=== PATIENT | male | born 1975 | race Caucasian/White ===

== ENCOUNTER 2022-05-08 15:55 | Emergency (ER) | payer SELFPAY ==
[2022-05-08 15:58] VITALS: BP 160/98; PULSE 101; RESP 18; TEMP 36.8; O2SAT 98; BMI 26.8
--- NOTE | 2022-05-08 18:11 | ED.DENTAL ---
HPI - Dental/Oral <ELIJAH Varela - Last Filed: 05/08/22 19:25> General Chief complaint: Dental/Oral Stated complaint: Lower right jaw infection Time Seen by Provider: 05/08/22 17:48 Source: patient Mode of arrival: Ambulatory History of Present Illness HPI Narrative: 46-year-old male, daily smoker, presents emergency department with right sided lower jaw swelling x8 hours. Patient denies any trauma to the area but has a broken tooth adjacent to the swelling. Patient denies having similar symptoms in the past. Patient is concerned he may have a dental abscess. Related Data Previous Rx's Medication Instructions Recorded levofloxacin 500 mg tablet 500 mg PO QDAY #9 tabs 12/02/17 (Levaquin) amoxicillin 875 mg-potassium 1 tab PO BID dental abscess 10 05/08/22 clavulanate 125 mg tablet days #20 tabs Allergies Allergy/AdvReac Type Severity Reaction Status Date / Time No Known Drug Allergies Allergy Verified 05/08/22 15:58 Review of Systems <ELIJAH Varela - Last Filed: 05/08/22 19:25> Review of Systems Narrative: Narrative: GENERAL: Denies chills, fatigue, fever, sweats. See HPI HEENT: Denies sinus pain, ear pain, difficulty swallowing, dizziness. Endorses mild sore throat and felt warm right-sided lower jaw swelling and pain. RESPIRATORY: Denies dyspnea, cough, wheezing, sputum. CARDIOVASCULAR: Denies chest pain, palpitations, edema. GASTROINTESTINAL: Denies nausea, vomiting, abdominal pain, diarrhea, constipation. : Denies dysuria, frequency, incontinence, hematuria, urinary retention, flank pain. MSK: Denies weakness, joint pain, or bony pain. SKIN: Denies rash, skin lesions, or pruritis. NEUROLOGIC: Denies weakness, dizziness, headache, numbness, confusion. PSYCHIATRIC: No concerning psychosocial issues. Patient History <ELIJAH Varela - Last Filed: 05/08/22 19:25> Social History Smoking Status: Current every day smoker Smoking Status: Current every day smoker alcohol intake frequency: 0-2 drinks per day Substance Use Type: does not use Exam <ELIJAH Varela - Last Filed: 05/08/22 19:25> Narrative Exam Narrative: Exam Narrative: GENERAL: This is a well-nourished, well-developed patient, in no acute distress HEAD: Atraumatic. Normocephalic. EYES: Pupils equal round and reactive. Extraocular motions intact. No scleral icterus, injection or drainage. ENT: Nose without bleeding, purulent drainage. Throat with mild erythema, tonsillar hypertrophy or exudate. Airway patent. NECK: Trachea midline. No JVD or lymphadenopathy. Nontender. CARDIOVASCULAR: Regular rate and rhythm without murmurs, peripheral pulses intact, cap refill <2 sec. RESPIRATORY: Breath sounds equal and clear bilaterally. No wheezes, rales, or rhonchi. No cough. No increased respiratory effort. No accessory muscle use. GASTROINTESTINAL: Abdomen soft, non-tender, nondistended without guarding or rebound. No suprapubic pain. MSK: Moves all extremities. Normal range of motion, no clubbing or edema. Neurovascularly intact. NEURO: A&O x 3. SKIN: Warm, dry, no rashes or lesions noted. Initial Vital Signs Initial Vital Signs: Vital Signs Temperature 98.2 F 05/08/22 15:58 Pulse Rate 101 H 05/08/22 15:58 Respiratory Rate 18 05/08/22 15:58 Blood Pressure 160/98 H 05/08/22 15:58 Pulse Oximetry 98 05/08/22 15:58 Oxygen Delivery Method 05/08/22 15:58 Reviewed <Vinicio Bartlett MD - Last Filed: 05/09/22 06:36> Initial Vital Signs Initial Vital Signs: Vital Signs Temperature 98.2 F 05/08/22 15:58 Pulse Rate 101 H 05/08/22 15:58 Respiratory Rate 18 05/08/22 15:58 Blood Pressure 160/98 H 05/08/22 15:58 Pulse Oximetry 98 05/08/22 15:58 Oxygen Delivery Method 05/08/22 15:58 Course <ELIJAH Varela - Last Filed: 05/08/22 19:25> Orders Ordered: Discontinued Medications Amoxicillin/Clavulanate Potassium (Amoxicillin/Clav 875/125 Mg) 1 tab PO NOW ONE Stop: 05/08/22 18:59 Last Admin: 05/08/22 19:22 Dose: 1 tab Documented By: AT Oxycodone/Acetaminophen (Oxycodone/Acetaminophen 5/325 Tablet) 1 tab PO NOW ONE Stop: 05/08/22 18:55 Last Admin: 05/08/22 19:22 Dose: 1 tab Documented By: AT Vital Signs Vital signs: Vital Signs - 8 hr 05/08/22 15:58 Temperature 98.2 F Pulse Rate 101 H Respiratory Rate 18 Blood Pressure 160/98 H Pulse Oximetry 98 Oxygen Delivery Method Room Air <Vinicio Bartlett MD - Last Filed: 05/09/22 06:36> Orders Ordered: Discontinued Medications Amoxicillin/Clavulanate Potassium (Amoxicillin/Clav 875/125 Mg) 1 tab PO NOW ONE Stop: 05/08/22 18:59 Last Admin: 05/08/22 19:22 Dose: 1 tab Documented By: AT Oxycodone/Acetaminophen (Oxycodone/Acetaminophen 5/325 Tablet) 1 tab PO NOW ONE Stop: 05/08/22 18:55 Last Admin: 05/08/22 19:22 Dose: 1 tab Documented By: AT Vital Signs Vital signs: Vital Signs - 8 hr 05/08/22 15:58 Temperature 98.2 F Pulse Rate 101 H Respiratory Rate 18 Blood Pressure 160/98 H Pulse Oximetry 98 Oxygen Delivery Method Room Air MDM - Dental/Oral <ELIJAH Varela - Last Filed: 05/08/22 19:25> Differential Diagnosis Differential diagnosis: Likely dental abscess and fracture of tooth; Unlikely other (strep throat) Lab Data Labs: Point of Care Testing Rapid Strep A Negative MDM Narrative Medical decision making narrative: 46-year-old male presents to the emergency department with right sided lower jaw dental abscess. Broken tooth at # 30 adjacent to swelling. Rapid strep was negative. Will treat patient with Augmentin with instructions to follow-up with a dentist nolberto. Will give the 1st dose Augmentin a single dose of pain medication prior to discharge. Discussed plan of care and return precautions with patient, who is agreeable to course of action. <Viincio Bartlett MD - Last Filed: 05/09/22 06:36> Lab Data Labs: Point of Care Testing Rapid Strep A Negative Discharge Plan Departure Patient Disposition: Home Clinical Impression: Dental abscess, Fracture of tooth Instructions: DI for Dental Pain Activity Restrictions/Additional Instructions: *You have been diagnosed with a dental abscess. Please start taking the antibiotics immediately as it will help with your discomfort. You may wish to rinse your mouth with warm salt water to reduce bacteria and facilitate any drainage. Please follow-up with a dentist nolberto. For worsening symptoms, please follow-up with your family doctor or return to the emergency department. I will contact you if your rapid strep is positive. *What to do: *Please continue to take your regular medications as directed. [X] New medication prescriptions sent to your pharmacy: [[facility] in [place]] [ ] New medication written as a paper prescription [ ] No new medications given *Please follow up with your primary care provider in 2-3 days, call for an appointment. Let them know you were seen in the Emergency Department and that we ask that you be seen in follow up. We will electronically transmit a record of today's note if your PCP is in our system *If you do not have a primary care provider please contact the [facility] Resource line at [phone]. They will ask some questions about your medical history and help get you set up with a doctor in the community. ? Return to ER if you should have any new, worsening or concerning symptoms, such as worsening pain, severe headache, confusion, chest pain, difficulty breathing, fever greater than 101 F, shaking chills, persistent vomiting to the point that you cannot drink fluids, or other new or worsening symptoms. Prescriptions: New amoxicillin-pot clavulanate 875-125 mg tablet 1 tab PO BID 10 Days Qty: 20 0RF No Action levofloxacin [Levaquin] 500 MG tablet 500 mg PO QDAY Qty: 9 0RF Visit Report Forms: Patient Portal/API <Vinicio Bartlett MD - Last Filed: 05/09/22 06:36> [facility] I was immediately available in the department for consultation. ?This documentation has been reviewed and I agree with assessment and plan. Supervised by Vinicio Bartlett MD
[2022-05-08] MEDS: AMOXICILLIN/CLAV 875/125 MG 1 TAB PO (19:22)
[2022-05-08] MEDS: OXYCODONE/ACETAMINOPHEN 5/325 TABLET 1 TAB PO (19:22)
--- NOTE | 2022-05-10 08:16 | PC.NURSE ---
Pt w/ difficulty picking up script as paperwork said sent to '[facility]' but electronically sent to [place]. Also called extension that was not monitored over weekend. Spoke with pt. He is going to [facility] in [place], if he has any problems, will call me back.
== END 2022-05-08 19:27 | disposition home or self-care (01) ==
PROVIDERS: Emergency Provider Registered Nurse
DX: K04.7 Periapical abscess without sinus (principal); S02.5XXA Fracture of tooth (traumatic), initial encounter for closed fracture
CPT/HCPCS: 87081; 87880; 99283